=== PATIENT | female | born 1965 | race Hispanic/Latino ===

== ENCOUNTER 2022-04-29 07:34 | Emergency (ER) | payer SELFPAY ==
--- OUTSIDE RECORDS SUMMARY | 2022-04-29 07:37 | XMS REPORT | Continuity of Care Document ---
:1965 Author Organization [facility] t Address [address] [place] [address] Care Team Providers Name Role Phone SYSTEM, PCP NOT IN Primary Care Physician Unavailable Keira Leblanc MD Attending Clinician KEIRA LEBLANC Attending Clinician Unavailable KEIRA LEBLANC Admitting Clinician Unavailable Payers Payer Name Policy Type Policy Number Effective Date Expiration Date S ource Problems Condition Condition Condition Status Onset Resolution Last Treating Co mments Source Name Details Category Date Date Treatment Clinician Date Right Right Problem Active Common sided sided [facility] sciatica sciatica - [facility] Pain in Pain in Problem Active Common left foot left foot Spir it - [facility] Plantar Plantar Problem Active Common fasciitis fasciitis Spir it of left of left - [facility] foot foot [facility] Pain of Pain of Problem Active Common joint of joint of Spirit left ankle left ankle - [facility] and foot and foot [facility] No known No known Disease Unive rs active active ity of problems problems [place] [facility] Morbid Morbid Problem Active Common obesity obesity Spirit due to due to - [facility] excess excess St calories [facility] Unilateral Unilateral Problem Active 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 - [facility] itis, itis, St right knee right knee [facility] Pain, Pain, Problem Active Common joint, joint, Spirit knee, knee, - [facility] right right [facility] Allergies, Adverse Reactions, Alerts Allergy Allergy Status Severity Reaction(s) Onset Inactive Treating Comm ents Source Name Type Date Date Clinician NO KNOWN Drug Active Univers ALLERGIE Class ity of S [place] [facility] [place] Social History Social Habit Start Date Stop Date Quantity Comments Source Exposure to 2021-10-16 2021-10-26 Not sure [facility] SARS-CoV-2 (event) 00:00:00 14:02:00 Medica l Branch Sex Assigned At [birth year] [facility] [place] [facility]:00 Medical Branch Smoking Status Start Date Stop Date Source Tobacco smoking consumption [facility] unknown Branch Medications Ordered Filled Start Stop Current Ordering Indication Dosage Frequency Signature Comments Components Source Medication Medication Date Date Medication? Clinician (SIG) Name Name levoFLOXaci 2021- No 750mg 750 mg, U nivers n 10-26 Oral, ONCE ity of (LEVAQUIN) 23:30: 22:30 [place] 750 [place] :00 dose, On Medic al mg [facility] 10/26/21 at 1830, ARAM
Re ason for Anti-Infec tive: Documented Infection< br>Documen abhishek Infection Site: Urine
D uration of Therapy: 7 days iopamidol 2021- No [id number] 69mL 69 mL, U nivers (ISOVUE 10-26 Intravenou ity o f 370-500 mL) 21:30: 21:30 s, ONCE, 1 [place] injection 00 :00 dose, On Medica l [address] [facility] 10/26/21 at 1630, Routine morpHINE (4 2021- No 4mg 4 mg, Slow Univers mg/mL) 10-26 IV Push, ity of injection 4 20:15: 19:22 [place]CE[place] 1 [place] :[place] dose, On Medical [facility] 10/26/21 at 1515, STAT ondansetron 2021- No 4mg 4 mg, Slow Univers (ZOFRAN 10-26 IV Push, ity of (PF)) 20:15: 19:22 ONCE, 1 [place] injection 4 00 :00 dose, On Medi elise mg [facility] 10/26/21 at 1515, ARAM ciprofloxac Yes [id number] 500mg Take 1 Univers in HCl 500 8-17 tablet by ity of mg tablet 00:00: mouth 2 [place] 00 (two) Medical times Branch daily. proMETHazin Yes [id number] 25mg Take 1 Univers e 25 mg 8-17 tablet by ity of tablet 00:00: mouth [place] 00 every 6 Medical (six) Branch hours as needed for Nausea and Vomiting (N/V). acetaminoph 2021- No 4647 1{tbl} Take 1 U nivers en-codeine 10-26 tablet by ity of 300-30 mg 00:00: 04:59 mouth [place] tablet 00 :00 every 4 Medical (four) Branch hours as needed for Pain (scale 1-3) for up to 7 days. Indication s: acute pain Advil Advil Yes Reji 1 tablet Commo n 8 Chow with food Spirit 00:00: or milk as - [facility]I 00 needed [facility] Vital Signs Vital Name Observation Time Observation Value Comments Source Systolic blood 2021-10-26 22:33:00 103 mm[Hg[facility] Diastolic blood 2021-10-26 22:33:00 65 mm[Hg] [facility] Heart rate 2021-10-26 22:33:00 90 /min [facility] Respiratory rate 2021-10-26 22:33:00 11 /min [facility] Oxygen saturation in 2021-10-26 22:33:00 99 /min [facility] Arterial blood by [facility] Pulse oximetry Branch Body temperature 2021-10-26 19:04:00 37.67 Tamiko [facility] Body weight 2021-10-26 19:04:00 89.359 kg [facility] Procedures Procedure Date / Time Performing Clinician Source Performed US TRANSVAGINAL 2021-10-26 21:50:00 Keira Leblanc [facility] CT ABDOMEN PELVIS W 2021-10-26 20:18:52 Keira Leblanc [facility] POCT TEST 2021-10-26 19:24:00 Keira Leblanc [facility] LIPASE 2021-10-26 19:16:00 Keira Leblanc [facility] COMP. METABOLIC PANEL 2021-10-26 19:16:00 Keira Leblanc [facility] ([id number]) [facility] CBC WITH DIFF 2021-10-26 19:16:00 Keira Leblanc [facility] URINALYSIS 2021-10-26 19:16:00 Keira Leblanc [facility] NOTICE OF PRIVACY 2021-10-26 18:55:41 Doctor Unassigned, No [facility] PRACTICES Name Medical Branch CONSENT/REFUSAL FOR 2021-10-26 18:55:20 Doctor Unassigned, No [facility] DIAGNOSIS AND TREATMENT Name [facility] Encounters Start End Encounter Admission Attending Care Care Encounter Source Date/Time Date/Time Type Type Clinicians Facility Department ID 2021-10-26 2021-10-26 Emergency JL Leblanc [id number] Univers 14:04:00 17:58:00 Keira Godinez [place] [id number] [facility] [id number] [facility] [id number] [place] [id number] Branch 2021-10-26 2021-10-26 Emergency X [facility] ERT [id number] Univers 14:04:00 17:58:00 KEIRA [facility] 2017-11-15 2017-11-15 [id number] Common 10:00:00 10:00:00 [facility] 2017-11-05 2017-11-05 [id number] Common 09:00:00 09:00:00 t [facility] Results Test Description Test Time Test Comments Results Result Comments Source COMP. METABOLIC PANEL (22490) 2021-10-26 19:45:02 Test Item Value Reference Range Interpretation Comme nts NA (test code = 8930052772) 139 mmol/L 135-145 K (test code = 9246102020) 4.5 mmol/L 3.5-5 CL (test code = 8473293055) 102 mmol/L 98-108 CO2 TOTAL (test code = 7957645416) 25 mmol/L 23-31 AGAP (test code = 7519339985) 2-16 BUN (test code = 9072658377) 28 mg/dL 7-23 H GLUCOSE (test code = 3961870579) 103 mg/dL 70-110 CREATININE (test code = 1.03 mg/dL 0.5-1.04 8843996931) TOTAL BILI (test code = 0.7 mg/dL 0.1-1.8 8979658353) CALCIUM (test code = 9675186634) 9.9 mg/dL 8.6-10.6 T PROTEIN (test code = 9601260161) 7.9 g/dL 6.3-8.2 ALBUMIN (test code = 1477201332) 4.7 g/dL 3.5-5 ALK PHOS (test code = 4298176245) 90 U/L 34-122 ALTv (test code = 1742-6) 20 U/L 5-35 AST(SGOT) (test code = 8729218667) 22 U/L 13-40 eGFR (test code = 3077061188) mL/min/1.73m2 LAUREN (test code = LAUREN) Association of Glomerular Filtration Rate (GFR) and Staging of Kidney Disease* + +-------- + ------+| GFR (mL/min/1.73 m2) ?| With Kidney Damage ?| ?Without Kidney Damage+ +-- + +| ?>90 ?| ?Stage one ?| ? Normal ?+ +------- + -------+| ?60-89 ?| ?Stage two ?| ? Decreased GFR ? + +-------- + ------+| ?30-59 ?| ?Stage three ?| ? Stage three ? + +-------- + ------+| ?15-29 ?| ?Stage four ? | ? Stage four ?+ +------- + -------+| ?<15 (or dialysis) ? ?| ?Stage five ? | ? Stage five ?+ +------- + -------+ *Each stage assumes the associated GFR level has been in effect for at least three months. ?Stages 1 to 5, with or without kidney disease, indicate chronic kidney disease. Notes: Determination of stages one and two (with eGFR >59mL/min/1.73 m2) requires estimation of kidney damage for at least three months as defined by structural or functional abnormalities of the kidney, manifested by either:Pathological abnormalities or Markers of kidney damage (including abnormalities in the composition of the blood or urine or abnormalities in imaging tests). Lab Interpretation (test code = Abnormal 32350-3) [facility] 19[facility]44:41 Test Item Value Reference Range Interpretation Comments LIPASE (test code = 4930252770) 154 U/L 0-220 Lab Interpretation (test code = Normal 55626-8) [facility] WITH [id number] 19:41:23 Test Item Value Reference Range Interpretation Comments WBC (test code = See_Comment H [Automated 4590-2) message] The sy stem which generated this result transmitted reference range : 4.30 - 11.10 10*3/?L. The reference range was not used to interpret this result as normal/abnormal . RBC (test code = See_Comment [Automated 629-8) message] The sy stem which generated this result transmitted reference range : 3.93 - 5.25 10*6/?L. The reference range was not used to interpret this result as normal/abnormal . HGB (test code = 14.4 g/dL 11.6-15 718-7) HCT (test code = 44.3 % 35.7-45.2 4544-3) MCV (test code = 87.0 fL 80.6-95.5 787-2) MCH (test code = 28.3 pg 25.9-32.8 785-6) MCHC (test code = 32.5 g/dL 31.6-35.1 786-4) RDW-SD (test code = 40.8 fL 39-49.9 51617-7) RDW-CV (test code = 12.8 % 12-15.5 788-0) PLT (test code = See_Comment [Automated 777-3) message] The sy stem which generated this result transmitted reference range : 166 - 358 10*3/ ?L. The reference r bailee was not used to interpret this result as normal/abnormal . MPV (test code = 13.0 fL 9.5-12.9 H 11365-1) IPF % (test code = 12.4 % 1.3-7.7 H Platelet count 1410129313) measured by fluorescence method. NRBC/100 WBC (test See_Comment [Automat ed code = 4482451442) message] The system which generated this result transmitted reference range : 0.0 - 10.0 /100 WBCs. The refer ence range was not u sed to interpret th is result as normal/abnormal . NRBC x10^3 (test code See_Comment [Auto mated = 4176475825) message] The s ystem which generated this result transmitted reference range : 10*3/?L. The reference range was not used to interpret this result as normal/abnormal . GRAN MAT (NEUT) % 77.8 % (test code = 770-8) IMM GRAN % (test code 0.30 % = 6181322505) LYMPH % (test code = 14.5 % 736-9) MONO % (test code = 6.6 % 5905-5) EOS % (test code = 0.5 % 713-8) BASO % (test code = 0.3 % 706-2) GRAN MAT x10^3(ANC) 9.13 10*3/uL 1.88-7.09 H (test code = 5368582333) IMM GRAN x10^3 (test 0.04 10*3/uL 0-0.06 code = 3057286935) LYMPH x10^3 (test code 1.70 10*3/uL 1.32-3.29 = 731-0) MONO x10^3 (test code 0.77 10*3/uL 0.33-0.92 = 742-7) EOS x10^3 (test code = 0.06 10*3/uL 0.03-0.39 711-2) BASO x10^3 (test code 0.04 10*3/uL 0.01-0.07 = 704-7) Lab Interpretation Abnormal (test code = 46938-3) [facility] [id number] 19:24:00 Test Item Value Reference Range Interpretation Comments POCT PREG (test code = 1605) Negative On board controls acceptable with Present C Line (test code = 3574) POCT PREG TEST DATE (test 02-08-2023 code = 3576) POCT PREG LOT # (test code = 3575) [id number] Lab Interpretation (test code = Normal 65182-2) [facility]"
[2022-04-29] MEDS ORDERED: NA CHLORIDE 0.9% 1,000 ML ONE (07:59)
[2022-04-29] MEDS ORDERED: ACETAMINOPHEN 500 MG TAB ONE (07:59)
[2022-04-29 08:15] LABS: Absolute Lymphocytes (CBC) 0.7 K/uL (0.7-4.9); Hematocrit 39.7 % (36.0-45.0); Lymphocytes % 7.4 % (15.3-44.8); MCV 85.3 fL (80-100); MPV 10.7 fL (7.6-11.3); RBC Red Blood Cell Count 4.66 M/uL (3.86-4.86)
--- NOTE | 2022-04-29 08:29 | RAD REPORT ---
EXAM DESCRIPTION: CT - CTHCSPWOC - 04/29/2022 8:14 am CLINICAL HISTORY: Trauma, head and neck injury. TRAUMA COMPARISON: No comparisons TECHNIQUE: Axial 5 mm thick images of the head were obtained. Axial 2 mm thick images of the cervical spine were obtained with sagittal and coronal reconstruction images generated and reviewed. All CT scans are performed using dose optimization technique as appropriate and may include automated exposure control or mA/KV adjustment according to patient size. FINDINGS: CT HEAD WITHOUT CONTRAST: No acute hemorrhage, hydrocephalus or extra-axial collection is identified.No areas of brain edema or midline shift. Right frontal scalp hematoma. Mucous retention cyst in right maxillary sinus.The calvarium is intact. CT CERVICAL SPINE WITHOUT CONTRAST: No fracture or subluxation.No prevertebral soft tissues swelling is identified. Reversal of the diaz l cervical lordosis. Mild cervical spondylosis is noted. Carotid artery calcifications. IMPRESSION: No acute intracranial or cervical spine findings.
[2022-04-29 08:31] LABS: Albumin 3.8 g/dL (3.4-5.0); Bilirubin Total 0.3 mg/dL (0.2-1.0); Magnesium 1.8 mg/dL (1.6-2.4); Potassium 4.2 mmol/L (3.5-5.1); Protein, Total 8.1 g/dL (6.4-8.2); Troponin High Sensitivity 15.1 pg/mL (<58.9)
--- NOTE | 2022-04-29 08:49 | RAD REPORT ---
EXAM DESCRIPTION: RAD - Chest Single View - 04/29/2022 8:31 am CLINICAL HISTORY: syncope COMPARISON: CHEST SINGLE VIEW dated 01/16/2012 FINDINGS: Lines: None. Lungs: No evidence of edema or pneumonia. Pleural: No significant pleural effusions or pneumothorax. Cardiac: The heart size is within normal limits. Mediastinum: Within normal limits. Bones: No acute fractures. Other: None IMPRESSION: No acute cardiopulmonary disease.
--- NOTE | 2022-04-29 09:04 | EDPHYS ---
Physician Documentation [facility] Name: Kaylah Betancourt Age: 56 yrs Sex: Female : 1965 Arrival Date: 04/29/2022 Time: 07:41 Bed 7 Private MD: ED Physician Sarath Ellis HPI: 04/29 08:47 This 56 yrs old Female presents to ER via EMS with complaints of Syncope. rt 08:47 Patient with history of hypertension diabetes presents to the ED with a fall, possible rt syncopal event. The patient has had a frontal headache since yesterday, mild in severity. The patient had a fall with reported loss of consciousness, she does not remember the event surrounding the fall. The son states that she believes that she hit her head on a kitchen island. She reports bruising to that area. She denies other pain or other acute complaints. She reports mild dizziness as well as nausea. Symptoms are moderate severity, no other aggravating or elevating factors.. Historical: - Allergies: 07:44 No Known Allergies; ll1 - PMHx: 07:44 Hypertensive disorder; ll1 - Immunization history:: Client reports receiving the 2nd dose of the Covid vaccine. - Social history:: Smoking status: Patient denies any tobacco usage or history of. - Family history:: not pertinent. ROS: 08:47 Constitutional: Negative for fever, chills, and weight loss, Eyes: Negative for injury, rt pain, redness, and discharge, Cardiovascular: Negative for chest pain, palpitations, and edema, Respiratory: Negative for shortness of breath, cough, wheezing, and pleuritic chest pain, MS/Extremity: Negative for injury and deformity, Skin: Negative for injury, rash, and discoloration, Psych: Negative for depression, anxiety, suicide ideation, homicidal ideation, and hallucinations. 08:47 Abdomen/GI: Positive for nausea, Negative for abdominal pain. 08:47 Neuro: Positive for dizziness, loss of consciousness. Exam: 08:47 Constitutional: This is a well developed, well nourished patient who is awake, alert, rt and in no acute distress. Head/Face: Normocephalic, atraumatic. Eyes: Pupils equal round and reactive to light, extra-ocular motions intact. Lids and lashes normal. Conjunctiva and sclera are non-icteric and not injected. Cornea within normal limits. Periorbital areas with no swelling, redness, or edema. Chest/axilla: Normal chest wall appearance and motion. Nontender with no deformity. No lesions are appreciated. Cardiovascular: Regular rate and rhythm with a normal S1 and S2. No gallops, murmurs, or rubs. Normal PMI, no JVD. No pulse deficits. Respiratory: Lungs have equal breath sounds bilaterally, clear to auscultation and percussion. No rales, rhonchi or wheezes noted. No increased work of breathing, no retractions or nasal flaring. Abdomen/GI: Soft, non-tender, with normal bowel sounds. No distension or tympany. No guarding or rebound. No evidence of tenderness throughout. Skin: Warm, dry with normal turgor. Normal color with no rashes, no lesions, and no evidence of cellulitis. MS/ Extremity: Pulses equal, no cyanosis. Neurovascular intact. Full, normal range of motion. Neuro: Awake and alert, GCS 15, oriented to person, place, time, and situation. Cranial nerves II-XII grossly intact. Motor strength 5/5 in all extremities. Sensory grossly intact. Cerebellar exam normal. Normal gait. Psych: Awake, alert, with orientation to person, place and time. Behavior, mood, and affect are within normal limits. 08:47 Neck: Mild left paraspinal cervical tenderness. 08:47 ECG was reviewed by the Attending Physician. Vital Signs: 07:42 BP 122 / 75; Pulse 104; Resp 17; Temp 98.7; Pulse Ox 99% on R/A; Weight 81.65 kg; ll1 Height 5 ft. 0 in. (152.40 cm); Pain 8/10; 09:21 BP 105 / 55; Pulse 83; Resp 17; Pulse Ox 99% on R/A; ll1 07:42 Body Mass Index 35.15 (81.65 kg, 152.40 cm) ll1 MDM: 07:47 Patient medically screened. rt 09:04 Differential Diagnosis: Syncope, intracranial hemorrhage, skull fracture, dysrhythmia, rt ACS, anemia, electrolyte imbalance. Data reviewed: vital signs, nurses notes, lab test result(s), EKG, radiologic studies. Consideration of Admission/Observation Escalation of care including admission/observation considered. Test considered but Not performed: CT: Low suspicion for pulmonary embolism, CT angiogram not indicated. Historians other than the Patient: Daughter/Son: Discussed recent history of unsteadiness on feet, frequent falls with son. Care significantly affected by the following chronic conditions: Diabetes, Hypertension. Counseling: I had a detailed discussion with the patient and/or guardian regarding: the historical points, exam findings, and any diagnostic results supporting the discharge/admit diagnosis, lab results, radiology results, the need for outpatient follow up, to return to the emergency department if symptoms worsen or persist or if there are any questions or concerns that arise at home. Response to treatment: the patient's symptoms have resolved after treatment, the patient's pain is gone. 04/29 07:53 Order name: CBC with Diff; Complete Time: 08:37 rt 04/29 07:53 Order name: CMP; Complete Time: 08:37 rt 04/29 07:53 Order name: CT Head C Spine; Complete Time: 08:37 rt 04/29 07:53 Order name: Chest Single View XRAY; Complete Time: 08:53 rt 04/29 07:53 Order name: Magnesium; Complete Time: 08:37 rt 04/29 07:53 Order name: Troponin High Sensitivity; Complete Time: 08:37 rt 04/29 07:53 Order name: EKG; Complete Time: 07:54 rt 04/29 07:53 Order name: EKG - Nurse/Tech; Complete Time: 07:54 rt EC:47 Rate is 100 beats/min. Rhythm is regular, Normal Sinus Rhythm with No ectopy. Right rt axis deviation noted. OK interval is normal. QRS interval is normal. QT interval is normal. Clinical impression: NSR w/ Non-specific ST/T Changes. Administered Medications: 08:05 Drug: NS 0.9% 1000 ml Route: IV; Rate: 1 bolus; Site: left antecubital; ll1 09:24 Follow up: Response: No adverse reaction; IV Status: Completed infusion; IV Intake: ll1 600ml 08:05 Drug: Tylenol 1000 mg Route: PO; ll1 09:24 Follow up: Response: No adverse reaction ll1 Point of Care Testing: Blood Glucose: 09:24 Blood Glucose: 125 mg/dL; ll1 09:24 with blood work ll1 Ranges: Critical Glucose Levels:Adult <50 mg/dl or >400 mg/dl <40 mg/dl or >180 mg/dl Disposition Summary: 04/29/22 09:04 Discharge Ordered Location: Home rt Problem: new rt Symptoms: have improved rt Condition: Stable rt Diagnosis - Syncope rt - Closed head injury rt Followup: rt - With: Private Physician - When: 2 - 3 days - Reason: Discharge Instructions: - Discharge Summary Sheet rt - Head Injury, Adult rt - Syncope rt Forms: - Medication Reconciliation Form rt - Thank You Letter rt - Antibiotic Education rt - Prescription Opioid Use rt Signatures: Dispatcher [employer] Alisson Reilly RN RN ll1 Sarath Ellis MD MD rt Corrections: (The following items were deleted from the chart) 09:06 09:04 Independent interpretation of the following test(s) in the Emergency Department rt X-Ray: My interpretation is No fracture on my interpretation of the x-ray images. rt
--- NOTE | 2022-04-29 09:04 | ER ---
Nurse's Notes [facility] Name: Kaylah Betancourt Age: 56 yrs Sex: Female : 1965 Arrival Date: 04/29/2022 Time: 07:41 Bed 7 Private MD: Diagnosis: Syncope;Closed head injury Presentation: 04/29 07:42 Chief complaint: Patient states: BALL since last night. Fell and hit head this morning, ll1 possible LOC. States she awoke when EMS arrived. + BALL, dizzy, nausea since. Coronavirus screen: Vaccine status: Patient reports receiving the 2nd dose of the covid vaccine. Client denies travel out of the [place] in the last 14 days. At this time, the client does not indicate any symptoms associated with coronavirus-19. Ebola Screen: Patient denies travel to an Ebola-affected area in the 21 days before illness onset. Initial Sepsis Screen: Does the patient meet any 2 criteria? No. Patient's initial sepsis screen is negative. Does the patient have a suspected source of infection? No. Patient's initial sepsis screen is negative. Risk Assessment: Do you want to hurt yourself or someone else? Patient reports no desire to harm self or others. Onset of symptoms was April 28, 2022. 07:42 Method Of Arrival: EMS ll1 07:42 Acuity: CLAUDIA 3 ll1 Triage Assessment: 07:44 General: Appears in no apparent distress. Behavior is calm, cooperative, appropriate ll1 for age. Pain: Complains of pain in head Pain currently is 8 out of 10 on a pain scale. Quality of pain is described as aching. Neuro: Reports dizziness, headache a syncopal episode. Cardiovascular: No deficits noted. Musculoskeletal: Circulation, motion, and sensation intact. Capillary refill < 3 seconds. Injury Description: Head injury. Historical: - Allergies: 07:44 No Known Allergies; ll1 - PMHx: 07:44 Hypertensive disorder; ll1 - Immunization history:: Client reports receiving the 2nd dose of the Covid vaccine. - Social history:: Smoking status: Patient denies any tobacco usage or history of. - Family history:: not pertinent. Screenin:06 [facility] ED Fall Risk Assessment (Adult) History of falling in the last 3 months, ll1 including since admission Yes- physiologic fall (2 pts) Impaired Gait No (0 pts) Mobility Assist Device Used Yes (1 pt) Score/Fall Risk Level 3 or more points = High Risk Oriented to surroundings, Maintained a safe environment, Educated pt \T\ family on fall prevention, incl call for assistance when getting out of bed, Provided non-skid footwear, Hourly rounding (assess needs \T\ fall precautionary measures) done, Offered frequent toileting (1:1 observation). Abuse screen: Denies threats or abuse. Nutritional screening: No deficits noted. Tuberculosis screening: No symptoms or risk factors identified. Assessment: 08:05 Reassessment: No changes from previously documented assessment. Patient and/or family ll1 updated on plan of care and expected duration. Pain level reassessed. Patient is alert, oriented x 3, equal unlabored respirations, skin warm/dry/pink. 09:22 Reassessment: No changes from previously documented assessment. Patient and/or family ll1 updated on plan of care and expected duration. Pain level reassessed. Patient is alert, oriented x 3, equal unlabored respirations, skin warm/dry/pink. 09:23 Neuro: Level of Consciousness is awake, alert, obeys commands, Oriented to person, ll1 place, time, situation, Appropriate for age. Cardiovascular: Rhythm is regular. Vital Signs: 07:42 BP 122 / 75; Pulse 104; Resp 17; Temp 98.7; Pulse Ox 99% on R/A; Weight 81.65 kg; ll1 Height 5 ft. 0 in. (152.40 cm); Pain 8/10; 09:21 BP 105 / 55; Pulse 83; Resp 17; Pulse Ox 99% on R/A; ll1 07:42 Body Mass Index 35.15 (81.65 kg, 152.40 cm) ll1 ED Course: 07:41 Patient arrived in ED. kc6 07:42 Alisson Tomlin, NOL[place] is Primary Nurse. ll1 07:44 Triage completed. ll1 07:44 Sarath Ellis MD is Attending Physician. rt 07:44 Arm band placed on Patient placed in an exam room, on a stretcher. ll1 08:08 Patient has correct armband on for positive identification. Bed in low position. Call ll1 light in reach. Side rails up X2. Client placed on continuous cardiac and pulse oximetry monitoring. NIBP monitoring applied. security monitor on. 08:15 CT Head C Spine In Process Unspecified. EDMS 08:25 Inserted saline lock: 20 gauge in left antecubital area, using aseptic technique. Blood rs5 collected. 08:26 Troponin High Sensitivity Sent. rs5 08:26 Magnesium Sent. rs5 08:26 CMP Sent. rs5 08:32 Chest Single View XRAY In Process Unspecified. EDMS 09:23 No provider procedures requiring assistance completed. IV discontinued, intact, ll1 bleeding controlled, No redness/swelling at site. Pressure dressing applied. Administered Medications: 08:05 Drug: NS 0.9% 1000 ml Route: IV; Rate: 1 bolus; Site: left antecubital; ll1 09:24 Follow up: Response: No adverse reaction; IV Status: Completed infusion; IV Intake: ll1 600ml 08:05 Drug: Tylenol 1000 mg Route: PO; ll1 09:24 Follow up: Response: No adverse reaction ll1 Medication: 08:08 VIS not applicable for this client. ll1 Point of Care Testing: Blood Glucose: 09:24 Blood Glucose: 125 mg/dL; ll1 09:24 with blood work ll1 Ranges: Intake: 09:24 IV: 600ml; Total: 600ml. ll1 Outcome: 09:04 Discharge ordered by . rt 09:23 Discharged to home via wheelchair. ll1 09:23 Condition: stable 09:23 Discharge instructions given to patient, family, Instructed on discharge instructions, follow up and referral plans. Demonstrated understanding of instructions, follow-up care. 09:25 Patient left the ED. ll1 Signatures: Dispatcher [employer] Alisson Reilly RN RN ll1 Ewa Chavarria RN RN kc6 Sarath Ellis MD MD rt Isma Christianson rs5 Corrections: (The following items were deleted from the chart) 09:23 08:08 Reassessment: ll1 ll1
[2022-04-29 09:36] VITALS: TEMP 98.7; O2SAT 99
[2022-04-29 09:52] VITALS: BP 105/55
--- NOTE | 2022-05-01 12:42 | EKG ---
Test Date: 2022-04-29 Test Time: 08:02:17 Corporate Strategy Intern: LATHA MEASUREMENT RESULTS: Intervals: Rate: 100 MT: 138 QRSD: 76 QT: 338 QTc: 436 [place]: P: 45 MT: 138 QRS: 96 T: 48 INTERPRETIVE STATEMENTS: Normal sinus rhythm Rightward axis Low voltage QRS Cannot rule out Anterior infarct, age undetermined Abnormal ECG Compared to ECG 01/16/2012 11:32:06 Right-axis deviation now present Low QRS voltage now present Myocardial infarct finding now present Electronically Signed On 05-01-22 12:37:23 SALES CLERK FOOD by Toby Castro
== END 2022-04-29 09:25 | disposition home or self-care (01) ==
LOC: ER 07:34
DX: R55 Syncope and collapse (principal); S09.90XA Unspecified injury of head, initial encounter
CPT/HCPCS: 36415; 70450; 71045; 72125; 80053; 83735; 84484; 85025; 93005; 96360; 99284; J7030

== ENCOUNTER 2023-06-09 22:20 | Emergency (ER) | payer OTHER, SELFPAY ==
--- OUTSIDE RECORDS SUMMARY | 2023-06-09 22:26 | XMS REPORT | Continuity of Care Document ---
Author Name Unknown Address [address] [place] [address] [facility] thconnect Address [address] [place] [address] Care Team Providers Care Gang Sawyer Name Role Phone SYSTEM, PCP NOT IN Primary Care Physician Keira Ellis MD Attending Clinician KEIRA LEBLANC Attending Clinician Unavailable KEIRA LEBLANC Admitting Clinician Unavailable Payers Payer Name Policy Type Policy Number Effective Date Expirati on Date Source Problems Condition Name Condition Details Condition Category Status Onset Date Resolution Date Last Treatment Date Treating Clinician Comments Source Right sided sciatica Right sided sciatica Problem Active [facility] Pain in left foot Pain in left foot Problem Active [facility] Plantar fasciitis of left foot Plantar fasciitis of left foot Problem Active [facility] Pain of joint of left ankle and foot Pain of joint of left ankle and foot Problem Active [facility] No known active problems No known active problems Disease [facility] Morbid obesity due to excess calories Morbid obesity due to excess calories Problem Active [facility] Unilateral primary osteoarthr itis, right knee Unilateral primary osteoarthr itis, right knee Problem Active [facility] Pain, joint, knee, right Pain, joint, knee, right Problem Active [facility] Allergies, Adverse Reactions, Alerts Allergy Name Allergy Type Status Severity Reaction(s) Onset Date Inactive Date Treating Clinician Comments Source NO KNOWN ALLERGIE S Drug Class Active [facility] Social History Social Habit Start Date Stop Date Quantity Comments Source Exposure to SARS-CoV-2 (event) 2021-10-16 00:00:00 2021-10-26 14:02:00 Not sure [facility] Sex Assigned At 1965 00:00:00 1965 00:00:00 [facility] Smoking Status Start Date Stop Date Source Tobacco smoking consumption unknown [facility] Medications Ordered Medication Name Filled Medication Name Start Date Stop Date Current Medication? Ordering Clinician Indication Dosage Frequency Signature (SIG) Comments Components Source levoFLOXaci n (LEVAQUIN) tablet 750 mg 10-26 23:30: 00 10-26 22:30 :00 No 750mg 750 mg, Oral, ONCE NOW, 1 dose, On Sun10/26/21 at 1830, ARAM
Re ason for Anti-Infec tive: Documented Infection< br>Documen abhishek Infection Site: Urine
D uration of Therapy: 7 days [facility] iopamidol (ISOVUE 370-500 mL) injection 69 mL 10-26 21:30: 00 10-26 21:30 :00 No [id number] 69mL 69 mL, Intravenou s, ONCE, 1 dose, On Sun10/26/21 at 1630, Routine [facility] morpHINE (4 mg/mL) injection 4 mg 10-26 20:15: 00 10-26 19:22 :00 No 4mg 4 mg, Slow IV Push, ONCE, 1 dose, On Sun10/26/21 at 1515, STAT [facility] ondansetron (ZOFRAN (PF)) injection 4 mg 10-26 20:15: 00 10-26 19:22 :00 No 4mg 4 mg, Slow IV Push, ONCE, 1 dose, On Sun10/26/21 at 1515, ARAM [facility] ciprofloxac in HCl 500 mg tablet 10-26 00:00: 00 Yes [id number] 500mg Take 1 tablet by mouth 2 (two) times daily. [facility] proMETHazin e 25 mg tablet 10-26 00:00: 00 Yes [id number] 25mg Take 1 tablet by mouth every 6 (six) hours as needed for Nausea and Vomiting (N/V). [facility] acetaminoph en-codeine 300-30 mg tablet 10-26 00:00: 00 11-03 04:59 :00 No [id number] 1{tbl} Take 1 tablet by mouth every 4 (four) hours as needed for Pain (scale 1-3) for up to 7 days. Indication s: acute pain [facility] Advil Advil 11-05 00:00: 00 Yes Reji Chow 1 tablet with food or milk as needed [facility] Vital Signs Vital Name Observation Time Observation Value Comments S ource Systolic blood pressure 2021-10-26 22:33:00 103 mm[Hg] [facility] Diastolic blood pressure 2021-10-26 22:33:00 65 mm[Hg] [facility] Heart rate 2021-10-26 22:33:00 90 /min [facility] Respiratory rate 2021-10-26 22:33:00 11 /min [facility] Oxygen saturation in Arterial blood by Pulse oximetry 2021-10-26 22:33:00 99 /min [facility] Body temperature 2021-10-26 19:04:00 37.67 Tamiko [facility] Body weight 2021-10-26 19:04:[address] [facility] Procedures Procedure Date / Time Performed Performing Clinician Source US TRANSVAGINAL 2021-10-26 21:50:00 [facility]AST 2021-10-26 20:18:52 Keira Leblanc [facility] POCT TEST 2021-10-26 19:24:00 Keira Leblanc [facility] LIPASE 2021-10-26 19:16:[address] [facility] COMP. METABOLIC PANEL (70725) 2021-10-26 19:16:00 Keira Leblanc [facility] CBC WITH DIFF 2021-10-26 19:16:00 Keira Leblanc [facility] URINALYSIS 2021-10-26 19:16:[address] [facility] NOTICE OF PRIVACY PRACTICES 2021-10-26 18:55:41 Doctor Unassigned, [place] [facility] CONSENT/REFUSAL FOR DIAGNOSIS AND TREATMENT 2021-10-26 18:55:20 Doctor Unassigned, [place] [facility] Encounters Start Date/Time End Date/Time Encounter Type Admission Type Attending Clinicians Care Facility Care Department Encounter ID Source 2021-10-26 14:04:00 2021-10-26 17:58:00 Emergency Keira Leblanc [facility] [id number] [facility] 2021-10-26 14:04:00 2021-10-26 17:58:00 Emergency X KEIRA LEBLANC [facility] ERT [id number] [facility] 2017-11-15 10:00:00 2017-11-15 10:00:00 [facility]patient [facility] [id number] [facility] 2017-11-05 09:00:00 2017-11-05 09:00:00 [facility] [id number] [facility] Results Test Description Test Time Test Comments Results Result Co mments Source [facility] 19:44:41* Test Item Value Reference Range Interpretation Comme nts LIPASE (test code = 2063824514) 154 U/L 0-220 Lab Interpretation (test cod e = 47381-7) Normal [facility] WITH [id number] 19:41:23* Test Item Value Reference Range Interpretation Comme nts WBC (test code = 6690-2) See_Comment H [Automated messa ge] The system which generated this result transmitted reference range: 4.30 - 11.10 10*3/?L. The reference range was not used to interpret this result as normal/abnormal. RBC (test code = 789-8) See_Comment [Automated [employer]] The system which generated this result transmitted reference range: 3.93 - 5.25 10*6/?L. The reference range was not used to interpret this result as normal/abnormal. HGB (test code = 718-7) 14.4 g/dL 11.6-15 HCT (test code = 4544-3) 44.3 % 35.7-45.2 MCV (test code = 787-2) 87.0 fL 80.6-95.5 MCH (test code = 785-6) 28.3 pg 25.9-32.8 MCHC (test code = 786-4) 32.5 g/dL 31.6-35.1 RDW-SD (test code = 97970-1) 40.8 fL 39-49.9 RDW-CV (test code = 788-0) 12.8 % 12-15.5 PLT (test code = 777-3) See_Comment [Automated [employer]] The system which generated this result transmitted reference range: 166 - 358 10*3/?L. The reference range was not used to interpret this result as normal/abnormal. MPV (test code = 25988-0) 13.0 fL 9.5-12.9 H IPF % (test code = 6252373159) 12.4 % 1.3-7.7 H Platelet count measured by fluorescence method. NRBC/100 WBC (test code = 0603531847) See_Comment [Automated [employer]] The system which generated this result transmitted reference range: 0.0 - 10.0 /100 WBCs. The reference range was not used to interpret this result as normal/abnormal. NRBC x10^3 (test code = 7479489653) See_Comment [Automated [employer]] The system which generated this result transmitted reference range: 10*3/?L. The reference range was not used to interpret this result as normal/abnormal. GRAN MAT (NEUT) % (test code = 770-8) 77.8 % IMM GRAN % (test code = 0053447581) 0.30 % LYMPH % (test code = 736-9) 14.5 % MONO % (test code = 5905-5) 6.6 % EOS % (test code = 713-8) 0.5 % BASO % (test code = 706-2) 0.3 % GRAN MAT x10^3(ANC) (test code = 3099294930) 9.13 10*3/uL 1.88-7.09 H IMM GRAN x10^3 (test code = 0673455342) 0.04 10*3/uL 0-0.06 LYMPH x10^3 (test code = 731-0) 1.70 10*3/uL 1.32-3.29 MONO x10^3 (test code = 742-7) 0.77 10*3/uL 0.33-0.92 EOS x10^3 (test code = 711-2) 0.06 10*3/uL 0.03-0.39 BASO x10^3 (test code = 704-7) 0.04 10*3/uL 0.01-0.07 Lab Interpretation (test code = 55707-9) Abnormal [facility] [id number] 19:24:00* Test Item Value Reference Range Interpretation Comme nts POCT PREG (test code = 1605) Negative On board controls acceptable with C Line (test code = 3574) Present POCT PREG TEST DATE ( test code = 3576) 02-08-2023 POCT PREG LOT # (test code = 3575) [id number] Lab Interpretation (test cod e = 46829-0) Normal [facility]
[2023-06-09] MEDS ORDERED: NA CHLORIDE 0.9% 500 ML ONE (23:20)
[2023-06-09] MEDS ORDERED: KETOROLAC 30 MG/ML INJ ONE (23:20)
[2023-06-09 23:35] LABS: Specific Gravity < 1.005 (1.005-1.030); Sqamous Epithelial None Seen /HPF (None Seen); Urine Bacteria <20 /HPF (<20); Urine Bilirubin NEGATIVE (Negative); Urine Blood Negative (Negative); Urine Clarity Clear (Clear); Urine Color Colorless (Yellow); Urine Crystals Unidentified Few /HPF (None Seen); Urine Culture Reflex Order NOT NEEDED; Urine Glucose NEGATIVE (Negative); Urine Ketones NEGATIVE (Negative); Urine Microscopic Reflex YN ORDER UMIC; Urine Nitrite NEGATIVE (Negative); Urine Protein NEGATIVE (Negative); Urine RBC None Seen /HPF (None Seen); Urine Urobilinogen Normal (Normal); Urine WBC None Seen /HPF (<5); Urine pH 5.5 (5.0-7.0)
[2023-06-10 00:14] LABS: Albumin 3.4 g/dL (3.4-5.0); Albumin/Globulin Ratio 0.8 (1.1-1.8); Anion Gap 9.8 mEq/L (5.0-15.0); Bilirubin Total 0.2 mg/dL (0.2-1.0); Globulin 4.4 g/dL (2.3-3.5); Potassium 3.8 mEq/L (3.5-5.1); Protein, Total 7.8 g/dL (6.4-8.2)
[2023-06-10 00:21] LABS: Absolute Eosinophils 0.2 K/uL (0-0.5); Absolute Lymphocytes (CBC) 1.3 K/uL (0.7-4.9); Absolute Monocytes 0.6 K/uL (0.1-1.3); Absolute Neutrophil 6.7 K/uL (1.8-8.0); Basophils % 0.4 % (0-1.3); Eosinophils % 2.3 % (0-4.4); Hematocrit 40.9 % (36.0-45.0); Hemoglobin 13.7 g/dL (12.0-15.0); Lymphocytes % 14.6 % (15.3-44.8); MCH 26.9 pg (27.0-35.0); MCHC 33.4 g/dL (32.0-36.0); MCV 80.6 fL (80-100); MPV 10.9 fL (7.6-11.3); Monocytes % 6.3 % (3.3-12.3); Neutrophils % 76.4 % (41.7-73.7); Nucleated RBC Absolute Count 0.1 (0-0); Nucleated Red Blood Cells % 0.9 % (0-0); Platelets 179 thou/uL (152-406); RBC Red Blood Cell Count 5.08 M/uL (3.86-4.86); Red Cell Distribution Width 14.2 % (12.1-15.2)
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
[2023-06-10 04:27] VITALS: BP 183/91; TEMP 97.5; O2SAT 100
--- NOTE | 2023-06-10 17:04 | RAD REPORT ---
EXAM DESCRIPTION: CT - Head C Spine Cap Wo Con - 06/10/2023 7:02 am CLINICAL HISTORY: 57 years, Female, PAIN COMPARISON: 04/29/2022 TECHNIQUE: CT imaging of the head and cervical spine were performed without IV contrast. Subsequent 2-D multiplanar reformats were generated in the sagittal and coronal plane and reviewed. Axial images through the chest, abdomen and pelvis were generated utilizing 5 mm slice thickness at 5 mm interval reconstruction without the administration of IV contrast. This exam was performed according to our departmental dose-optimization program which includes use of Automated Exposure Control, adjustment of the mA and/or kV according to patient size and/or use of i terative reconstruction technique. Contrast: No intravenous contrast. FINDINGS: HEAD: Brain: Brain parenchymal attenuation and morphology are normal. No acute hemorrhage. Dan-white matte r differentiation is maintained. No mass effect or midline shift. Ventricles/CSF spaces: Normal size and morphology. Orbits: Normal. Paranasal sinuses: Imaged paranasal sinuses are clear. Mastoids/middle ears: Clear. Bones: Calvarium, skull base, and imaged facial bones are normal. Scalp/facial soft tissues: No acute scalp or soft tissue injury. CERVICAL SPINE: There is slight straightening of the cervical spine. Otherwise there is anatomic alignment. No acute fracture or subluxation. Vertebral body heights are preserved. Intervertebral disc spaces are maintained. No significant osseo us spinal canal or neuroforaminal stenosis. Intraspinal contents appear grossly normal. No epidural h ematoma. Cervical soft tissues are unremarkable. Imaged lung apices are clear. CHEST: Lower neck/chest wall: Visualized thyroid gland and soft tissues are normal. No adenopathy. Lungs and airways: The lung parenchyma demonstrate to be clear. No evidence of airspace or interstiti al process. No focal areas of consolidation. There is a small nodule posterior segment right lower lo be measuring approximately 5.3 mm on image 29. Airways: The trachea mainstem bronchus demonstrate to be unremarkable. Pleural: There are no pleural effusion. No evidence for pneumothorax. Hemidiaphragms are normally pos itioned. Mediastinum and lymph nodes: No significant mediastinal and/or hilar lymphadenopathy. The axillary re gions demonstrate to be clear. Heart: Normal heart size. No pericardial effusion. There are minimal coronary artery calcifications. Thoracic aorta: There is minimal intimal aortic arch calcification with no evidence for aneurysm. Pulmonary arteries: The pulmonary arteries were not evaluated due to lack of IV contrast. Osseous structures and chest wall: The visualized portions of the clavicles, humeral heads, bilateral scapulas, sternum, vertebral bodies of the thoracic spine, but lateral ribs demonstrate to be within normal limits. No evidence for acute bony injuries ABDOMEN AND PELVIS: Liver: Grossly the unopacified liver demonstrates to be normal, no focal lesions are identified. Gallbladder: The gallbladder demonstrate to be normal. Adrenal glands: Grossly the unopacified adrenal glands demonstrate to be normal. Pancreas: The pancreas demonstrate to be normal. Spleen: The spleen demonstrate to be normal. Kidneys: Grossly the unopacified kidneys demonstrate to be within normal limits. There is no eviden ce for significant nephrolithiasis and/or hydronephrosis. There are no significant cystic lesions. GI: Grossly the unopacified stomach, small bowel and large bowel demonstrate to be within normal limi ts. No evidence for bowel dilatation and/or free air. The appendix is normal. The left-sided colon de monstrate to be decompressed with no gross abnormalities. : The urinary bladder demonstrate to be unremarkable. Genitalia: The uterus demonstrate to be within normal limits. There is a T-shaped structure within th e endometrial cavity corresponding to a intrauterine device. There are normal adnexal structures. Abdominal aorta: The aorta demonstrate to be within normal limits. Retroperitoneum: There is no retroperitoneal lymphadenopathy. There is no evidence for ascites and/or abnormal fluid collections. Bones: The vertebral bodies of the lumbar spine, spinous processes, transverse processes, sacrum, triston ac bones, superior and inferior pubic rami bilateral hip joints and proximal aspect of the femurs dem onstrate to be within normal limits. No evidence for acute bony injuries. Soft tissues: There is a lower abdominal wall hernia containing omentum and small bowel. No evidence for incarceration. This is best demonstrated on axial image [id number]/[id number]/120. IMPRESSION: No acute intracranial findings. No acute fracture or subluxation of the cervical spine. Right solid pulmonary nodule measuring 5 mm. Per Fleischner Society Guidelines, no routine follow-up imaging is recommended. These guidelines do not apply to immunocompromised patients and patients with cancer. Follow up in pa tients with significant comorbidities as clinically warranted. For lung cancer screening, adhere to L smooth-RADS guidelines. Reference: Radiology. 2017; 284(1):228-43. Lower abdominal wall hernia containing omentum and small bowel. No evidence for incarceration. No evidence for significant intrathoracic and/or intra-abdominal process. Electronically signed by: Jean Pierre Bolaños MD 06/10/2023 12:20 AM CDT Due to temporary technical issues with the PACS/Fluency reporting system, reports are being signed by the in house radiologists without review as a courtesy to insure prompt reporting. The interpreting radiologist is fully responsible for the content of the report
== END 2023-06-10 01:09 | disposition home or self-care (01) ==
LOC: ER 22:20
DX: S16.1XXA Strain of muscle, fascia and tendon at neck level, initial encounter (principal); R91.1 Solitary pulmonary nodule; I10 Essential (primary) hypertension; V49.50XA Passenger injured in collision with unspecified motor vehicles in traffic accident, initial encounter
CPT/HCPCS: 85025; 81001; 36415; 80053; 70450; 71250; 72125; 96374; 99284; J7040